=== PATIENT | male | born 1965 | race Caucasian/White ===

== ENCOUNTER 2018-04-22 18:14 | Emergency (ER) | payer OTHER ==
[~2018-04-22] VITALS: Ht 190.5 cm; Wt 205.0 kg
[2018-04-22] MEDS ORDERED: METFORMIN HCL500 MG PO (18:41)
[2018-04-22] MEDS ORDERED: GLYBURIDE 2.52.5 MG PO (18:42)
[2018-04-22] MEDS ORDERED: HYDROCHLOROTHIA25 M2 PO (18:42)
[2018-04-22] MEDS ORDERED: ASPIR 8181 MG PO (18:42)
[2018-04-22 19:06] LABS: HEMATOCRIT 45.4 % (42.0-52.0); HEMOGLOBIN 16.2 gm/dL (14.0-18.0); MCH 31.5 pg (26.0-34.0); MCHC 35.6 g/dL (28.0-37.0); MCV 88.5 fL (80.0-100.0); RBC 5.13 mil/uL (4.50-6.00); WBC 7.6 thou/uL (4.0-11.0)
[2018-04-22 19:15] LABS: CALCIUM 9.7 mg/dL (8.5-10.1); CREATININE 1.3 mg/dL (0.7-1.3)
[2018-04-22 19:21] LABS: ALBUMIN 3.7 g/dL (3.4-5.0); TOTAL BILIRUBIN 0.8 mg/dL (<0.1-1.0); TOTAL PROTEIN 7.7 g/dL (6.4-8.2)
[2018-04-22 19:40] VITALS: BP 140/83
== END 2018-04-22 21:23 | disposition home or self-care (01) ==
LOC: ER 18:14
PROVIDERS: Emergency Medicine
DX: L27.0 Generalized skin eruption due to drugs and medicaments taken internally (principal); T38.3X5A Adverse effect of insulin and oral hypoglycemic [antidiabetic] drugs, initial encounter; Y92.89 Other specified places as the place of occurrence of the external cause; Z88.0 Allergy status to penicillin